=== PATIENT | male | born 1995 | race African-American/Black ===

== ENCOUNTER 2021-08-28 00:03 | Emergency (ER) | payer MEDICAID, OTHER ==
[2021-08-28 00:45] LABS: ANION GAP 18.1 mEq/L (7-13); CHLORIDE,CL 105 mmol/L (98-107); SODIUM,NA 142 mmol/L (136-145)
[2021-08-28 00:46] LABS: ACETAMINOPHEN 0 ug/mL (10-30 (Therapeutic))
== END 2021-08-28 02:18 ==
LOC: DL.ED 00:03
DX: S02.2XXA Fracture of nasal bones, initial encounter for closed fracture (principal); F10.10 Alcohol abuse, uncomplicated; Z72.0 Tobacco use; Z20.822 Contact with and (suspected) exposure to COVID-19; Y04.0XXA Assault by unarmed brawl or fight, initial encounter
CPT/HCPCS: 36415; 70486; 80053; 80143; 80179; 80307; 85025; 99284-25; U0002

== ENCOUNTER 2022-08-16 01:30 | Emergency (ER) | payer SELFPAY ==
[2022-08-16] MEDS ORDERED: Lidocaine 1% with EPINEPHrine 1:100,000 20 ML MDV INJECT ONE (01:38)
[2022-08-16] MEDS ORDERED: Bacitracin Oint 1 GM U/D Packet TOP ONE (02:11)
== END 2022-08-16 02:23 | disposition home or self-care (01) ==
LOC: DL.ED 01:30
DX: S61.411A Laceration without foreign body of right hand, initial encounter (principal); W26.0XXA Contact with knife, initial encounter
CPT/HCPCS: 12001; 99282; A9270; J3490

== ENCOUNTER 2022-09-01 22:58 | Emergency (ER) | payer SELFPAY ==
[2022-09-01] MEDS ORDERED: Sulfamethoxazole/Trimethoprim 800-160 MG Tab PO ONE (23:03)
[2022-09-01] MEDS ORDERED: Bacitracin Oint 1 GM U/D Packet TOP ONE (23:08)
== END 2022-09-01 23:18 | disposition home or self-care (01) ==
LOC: DL.ED 22:58
DX: S61.411A Laceration without foreign body of right hand, initial encounter (principal); I10 Essential (primary) hypertension
CPT/HCPCS: 99282; A9270-GY